=== PATIENT | female | born 2000 | race Caucasian/White ===

== ENCOUNTER 2022-11-11 23:11 | Emergency (ER) | payer OTHER, BC ==
[2022-11-11] MEDS ORDERED: Boostrix 0.5 ML (Tdap) VIAL (>/=7 yrs of age) ONE (23:43)
== END 2022-11-12 00:04 | disposition home or self-care (01) ==
LOC: MADERS 23:11
DX: S60.415A Abrasion of left ring finger, initial encounter (principal); S60.417A Abrasion of left little finger, initial encounter; W26.8XXA Contact with other sharp object(s), not elsewhere classified, initial encounter; Z23 Encounter for immunization; Y93.89 Activity, other specified; Y92.69 Other specified industrial and construction area as the place of occurrence of the external cause
CPT/HCPCS: 90471; 90715; 99283